=== PATIENT | male | born 1945 | race Caucasian/White ===

== ENCOUNTER 2023-12-30 12:13 | Outpatient (CLI) | payer MEDICARE ==
[2023-12-30 12:36] LABS: Bilirubin Negative (Negative); Blood, Urine Negative (Negative); Clarity Clear (Clear); Glucose, Urine (Dipstick) Negative (Negative); Ketone, Urine Negative (Negative); Leukocyte Negative (Negative); Nitrite Negative (Negative); Protein, Urine (Dipstick) Negative (Neg-Trace); Urobilinogen 0.2 mg/dL (Less than 2)
[2023-12-30 12:46] LABS: RBC/HPF 0-3 HPF (0-3)
[2023-12-30 12:58] LABS: Anion Gap 13 mmol/L (10-20); BUN (Urea Nitrogen) 23 mg/dL (8.4-25.7); Calc. Creatinine Clearance 0 mL/min (70-130); Calcium 9.4 mg/dL (7.8-10.44); Carbon Dioxide 25 mmol/L (23-31); Chloride 106 mmol/L (98-107); Estimated GFR 77; Glucose 93 mg/dL (83-110); Potassium 3.8 mmol/L (3.5-5.1); Sodium 140 mmol/L (136-145)
== END 2023-12-30 12:14 | disposition home or self-care (01) ==
LOC: NAV CT 12:13
PROVIDERS: ATTEND Urology
DX: N40.1 Benign prostatic hyperplasia with lower urinary tract symptoms (principal); Z12.5 Encounter for screening for malignant neoplasm of prostate; N20.0 Calculus of kidney; Q61.01 Congenital single renal cyst; R35.0 Frequency of micturition; N50.3 Cyst of epididymis; Z87.891 Personal history of nicotine dependence; Z98.890 Other specified postprocedural states; N28.1 Cyst of kidney, acquired
CPT/HCPCS: 36415; 74176; 80048; 81001; 87086; G0103